=== PATIENT | female | born 1970 | race African-American/Black ===

== ENCOUNTER 2018-09-14 13:06 | Outpatient (CLI) | payer OTHER ==
--- NOTE | 2018-09-14 13:26 | ULT ---
US Thyroid STANDARD: 09/14/2018 12:00 AM CLINICAL INDICATION: Enlarged thyroid. COMPARISON: None. FINDINGS: Right and left thyroid lobes are normal in size and echotexture. The right thyroid lobe measures 5.6 and the left thyroid lobe measures 4.8. No left thyroid nodules are present. There is a very small hypoechoic nodule in the inferior aspect o f the right thyroid lobe measuring 9 mm in greatest dimension. This is well-circumscribed and wider than tall without suspicious calcifications. No cervical lymphadenopathy is noted. IMPRESSION: Small right thyroid nodule TIRADS category 4 ; TIRADS category 4 lesions less than 1 cm in size to not need further follow-up or FNA per recent recommendations.
== END 2018-09-14 13:07 | disposition home or self-care (01) ==
LOC: BICULT 13:06
PROVIDERS: ATTEND Family Medicine
DX: E04.9 Nontoxic goiter, unspecified (principal); E04.1 Nontoxic single thyroid nodule
CPT/HCPCS: 76536